=== PATIENT | female | born 1945 | race Caucasian/White ===

== ENCOUNTER 2017-01-13 17:52 | Emergency (ER) | payer OTHER ==
[~2017-01-13] VITALS: Ht 162.6 cm; Wt 62.1 kg
--- NOTE | ~2017-01-13 | EKG ---
[address] [employer] [place] [address] ELECTROCARDIOGRAM REPORT Name: KAREEM LOPEZ Room #: DEP [facility]#: [id number] Admission: 01/13/17 Attend Phys: Discharge: 01/13/17 Date of : 45 Report #: [id number] THIS REPORT FOR: //name// [facility] [place], [place] ED Test Date: 2017-01-13 Test Time: 19:40:05 Pat Name: KAREEM LOPEZ Department: Room: Gender: F Candy Dipper: [place]ocrates miles : 1945 Requested By: Hipolito Lujan Order Number: [id number] MD: Hugh Hou Measurements Intervals Ash Rate: 71 P: 69 WA: 191 QRS: -27 QRSD: 171 T: 129 QT: 468 QTc: 509 Interpretive Statements Sinus rhythm Left bundle branch block No previous ECG available for comparison Electronically Signed On 01-14-2017 13:15:51 CDT by Hugh Hou [email or web address] <ELECTRONICALLY SIGNED> By: Hugh Hou MD 01/14/17 1315 39 39 Hugh Hou MD /[place]
[~2017-01-13 17:52] MED LIST: ASPIRIN325 PO; CELEXA20 MG PO; LIPITOR10 MG PO; OXYCONTIN10 M1 PO; ZANTAC 150MG T150 MG PO
[2017-01-13 19:49] LABS: ABSOLUTE NEUTROPHILS 6.6 thou/uL (1.4-8.2); BASOPHILS 0.8 % (0.0-2.0); EOSINOPHILS 3.3 % (0.0-3.0); HEMATOCRIT 32.4 % (37.0-47.0); HEMOGLOBIN 10.9 gm/dL (12.0-15.0); LYMPHOCYTES 18.7 % (24.0-44.0); MCH 30.2 pg (26.0-34.0); MCHC 33.6 g/dL (28.0-37.0); PLATELET COUNT 323 thou/uL (150-400); POLYS 69.2 % (36.0-66.0); RDW 13.3 % (10.5-14.5); WBC 9.6 thou/uL (4.0-11.0)
[2017-01-13 19:52] LABS: MANUAL DIFF NO
[2017-01-13 19:56] LABS: CALCIUM 9.1 mg/dL (8.5-10.1); POTASSIUM 3.2 mmol/L (3.5-5.1)
[2017-01-13] MEDS ORDERED: DOXYCYCLINE 10100 MG PO (20:49)
[2017-01-13] MEDS ORDERED: PROVENTIL HFA6.7 G1 INH (20:50)
== END 2017-01-13 21:07 | disposition home or self-care (01) ==
LOC: ER 17:52
PROVIDERS: Physician Assistant
DX: J18.8 Other pneumonia, unspecified organism (principal); E78.00 Pure hypercholesterolemia, unspecified; F32.9 Major depressive disorder, single episode, unspecified; K21.9 Gastro-esophageal reflux disease without esophagitis; F10.99 Alcohol use, unspecified with unspecified alcohol-induced disorder; Z90.710 Acquired absence of both cervix and uterus; Z87.891 Personal history of nicotine dependence

== ENCOUNTER → 2017-08-22 | Outpatient (CLI) | payer OTHER ==
[~2017-08-22] MED LIST changes: +DOXYCYCLINE 10100 MG PO; +PROVENTIL HFA6.7 G1 INH
== END ==
LOC: CAT 12:18
DX: K57.30 Diverticulosis of large intestine without perforation or abscess without bleeding (principal); K52.9 Noninfective gastroenteritis and colitis, unspecified

== ENCOUNTER → 2018-10-27 | Outpatient (CLI) | payer OTHER | LOC: RAD 11:09 | DX: R05 Cough (principal); N95.1 Menopausal and female climacteric states ==

== ENCOUNTER → 2019-12-10 | Outpatient (CLI) | payer OTHER ==
[~2019-12-10] MED LIST changes: +CALCIUM 500-VI1 EAC2 PO; +METOPROLOL TART25 MG PO; +MOBIC7.5 MG PO; +MULTI VITAMIN1 EACH PO
== END ==
LOC: RAD 10:56
DX: M81.0 Age-related osteoporosis without current pathological fracture (principal)